=== PATIENT | male | born 1955 | race Caucasian/White ===

== ENCOUNTER 2022-09-20 06:56 | Day surgery (SDC) | payer OTHER ==
[~2022-09-20] VITALS: Ht 182.9 cm; Wt 100.0 kg
[2022-09-20] MEDS ORDERED: ASCO100089 PO (07:16)
[2022-09-20] MEDS ORDERED: PYRI250T8 PO (07:17)
[2022-09-20] MEDS ORDERED: DOCU-21 PO (07:17)
[2022-09-20 07:18] VITALS: BP 138/95
[2022-09-20] MEDS ORDERED: FENTANYL CITRATE/PF 50 MCG/1 ML VIAL ONE ×2 (07:41→07:42)
[2022-09-20] MEDS ORDERED: MIDAZolam 1 MG/ML 5ML VIAL ONE (07:42)
[2022-09-20 08:59] VITALS: BP 128/77
[2022-09-20 09:09] VITALS: BP 125/81
[2022-09-20 09:19] VITALS: BP 137/87
[2022-09-20 09:29] VITALS: BP 139/79
== END 2022-09-20 09:35 | disposition home or self-care (01) ==
LOC: GI LAB 06:56
PROVIDERS: ATTEND Internal Medicine Gastroenterology
DX: D12.3 Benign neoplasm of transverse colon (principal); D12.2 Benign neoplasm of ascending colon; K57.30 Diverticulosis of large intestine without perforation or abscess without bleeding; Z85.9 Personal history of malignant neoplasm, unspecified
CPT/HCPCS: 45385; G0500; J2250; J3010; J7030; Z7512; 99152; 99153; A4620; C1889